=== PATIENT | male | born 1985 | race Caucasian/White ===

== ENCOUNTER 2018-05-26 08:00 | Outpatient (CLI) | payer MEDICAID ==
[2018-05-26 19:28] LABS: BASOPHILS # (AUTO) 0.1 10^3/uL (0.0-0.1); BASOPHILS % (AUTO) 0.8 %; EOSINOPHILS # (AUTO) 0.1 10^3/uL (0.0-0.7); EOSINOPHILS % (AUTO) 0.8 %; LYMPHOCYTES # (AUTO) 1.3 10^3/uL (1.5-3.5); LYMPHOCYTES % (AUTO) 15.9 %; MEAN CORPUSCULAR HEMOGLOBIN 28.2 pg (27.0-31.0); MEAN CORPUSCULAR HGB CONC 33.1 g/dL (32.0-36.0); MEAN CORPUSCULAR VOLUME 85.4 fL (80.0-94.0); MEAN PLATELET VOLUME 13.1 fL (7.4-11.4); MONOCYTES # (AUTO) 0.6 10^3/uL (0.0-1.0); MONOCYTES % (AUTO) 7.4 %; NEUTROPHILS # (AUTO) 6.1 10^3/uL (1.5-6.6); NEUTROPHILS % (AUTO) 75.1 %; PLT - PLATELET COUNT 275 10^3/uL (130-450); RED BLOOD COUNT 5.68 10^6/uL (4.70-6.10); RED CELL DISTRIBUTION WIDTH 13.3 % (12.0-15.0); WHITE BLOOD COUNT 8.1 x10^3/uL (4.8-10.8)
[2018-05-26 19:48] LABS: ALBUMIN 4.2 g/dL (3.2-5.5); ALBUMIN/GLOBULIN RATIO 1.2 (1.0-2.2); BILIRUBIN,TOTAL 0.8 mg/dL (0.2-1.0); CALCIUM 9.2 mg/dL (8.5-10.3); TOTAL PROTEIN 7.7 g/dL (6.7-8.2)
== END 2018-05-26 23:59 | disposition home or self-care (01) ==
LOC: LAB.N 08:00
DX: R22.1 Localized swelling, mass and lump, neck (principal)
CPT/HCPCS: 36415; 80053; 85025

== ENCOUNTER 2018-06-16 08:00 | Outpatient (CLI) | payer MEDICAID ==
[2018-06-16 19:09] LABS: BILIRUBIN,URINE NEGATIVE (NEGATIVE); GLUCOSE, URINE (UA) NEGATIVE (NEGATIVE); KETONES,URINE (UA) NEGATIVE (NEGATIVE); LEUKOCYTE ESTERASE, URINE NEGATIVE (NEGATIVE); NITRITE,URINE NEGATIVE (NEGATIVE); OCCULT BLOOD,URINE NEGATIVE (NEGATIVE); PH,URINE 5.5 PH (5.0-7.5); PROTEIN,URINE NEGATIVE (NEGATIVE); UROBILINOGEN,URINE 0.2 (NORMAL) E.U./dL (NORMAL)
[2018-06-16 19:17] LABS: CLARITY,URINE CLEAR (CLEAR); RBC,URINE None Seen /HPF (0-5); SQUAMOUS EPITHELIAL CELL,UR NONE SEEN (<= Few)
[2018-06-16 19:18] LABS: BACTERIA,URINE None Seen /HPF (None Seen); MUCUS,URINE Few Strands
[2018-06-19 14:46] LABS: ANA SCREEN NEGATIVE (NEGATIVE)
== END 2018-06-16 23:59 | disposition home or self-care (01) ==
LOC: LAB.N 08:00
DX: D71 Functional disorders of polymorphonuclear neutrophils (principal)
CPT/HCPCS: 36415; 81001; 82164; 85651; 86021; 86038; 86140

== ENCOUNTER 2018-06-16 12:41 | Outpatient (CLI) | payer MEDICAID ==
--- NOTE | 2018-06-16 13:46 | XRAY Report ---
Reason: HEMOPTYSIS Procedure Date: 06/16/2018 Accession Number: [id number] / [id number] Procedure: XRN - Chest 2 View X-Ray CPT Code: 90941 FULL RESULT: EXAM: CHEST RADIOGRAPHY EXAM DATE: 06/16/2018 01:28 PM. CLINICAL HISTORY: HEMOPTYSIS. COMPARISON: None. TECHNIQUE: 2 views. FINDINGS: Lungs/Pleura: No focal lung consolidation. No pleural effusion. No pneumothorax. Mediastinum: Cardiac silhouette size appears unremarkable. Other: Osseous structures and upper abdomen appear unremarkable. IMPRESSION: No focal lung consolidation or pleural effusions. RADIA
== END 2018-06-16 12:42 | disposition home or self-care (01) ==
LOC: DI.N 12:41
DX: R04.2 Hemoptysis (principal); D71 Functional disorders of polymorphonuclear neutrophils
CPT/HCPCS: 36415; 71046; 81001; 82164; 85651; 86021; 86038; 86140

== ENCOUNTER 2018-06-30 11:03 | Outpatient (CLI) | payer MEDICAID ==
--- NOTE | 2018-06-30 13:49 | XRAY Report ---
Reason: CONTUSION OF UNSPECIFIED FRNT WALL OF THORAX Procedure Date: 06/30/2018 Accession Number: [id number] / [id number] Procedure: XR - Ribs w/PA Chest LT CPT Code: FULL RESULT: EXAM: LEFT RIB RADIOGRAPHY EXAM DATE: 06/30/2018 11:31 AM. CLINICAL HISTORY: Contusion of unspecified front wall of thorax. COMPARISON: CHEST 2 VIEW 06/16/2018 1:31 PM. TECHNIQUE: 1 view of the chest and 2 views of the ribs. FINDINGS: Bones: Normal. No fracture or bone lesion. Lungs: No focal opacities. No pneumothorax. No pleural effusions. Mediastinum: Heart and mediastinal contours are unremarkable. Other: None. IMPRESSION: Normal chest and rib radiography. RADIA
== END 2018-06-30 11:04 | disposition home or self-care (01) ==
LOC: DI 11:03
PROVIDERS: ATTEND Family Medicine
DX: S20.219A Contusion of unspecified front wall of thorax, initial encounter (principal)

== ENCOUNTER 2018-07-18 11:16 | Outpatient (CLI) | payer MEDICAID | END 2018-07-18 11:17 | disposition home or self-care (01) | LOC: LAB 11:16 | PROVIDERS: ATTEND Internal Medicine Gastroenterology | DX: R22.1 Localized swelling, mass and lump, neck (principal) | CPT/HCPCS: 36415; 81599; 86611 ==

== ENCOUNTER 2023-07-19 14:24 | Emergency (ER) | payer MEDICAID ==
[2023-07-19 14:51] VITALS: O2SAT 97
[2023-07-19 15:11] LABS: BASOPHILS % (AUTO) 0.6 %; EOSINOPHILS # (AUTO) 0.1 10^3/uL (0.0-0.7); EOSINOPHILS % (AUTO) 2.2 %; HCT - HEMATOCRIT 52.4 % (42.0-52.0); HGB - HEMOGLOBIN 18.2 g/dL (14.0-18.0); LYMPHOCYTES % (AUTO) 30.9 %; MEAN CORPUSCULAR HEMOGLOBIN 28.9 pg (27.0-31.0); MEAN CORPUSCULAR HGB CONC 34.7 g/dL (32.0-36.0); MEAN CORPUSCULAR VOLUME 83.2 fL (80.0-94.0); MEAN PLATELET VOLUME 11.7 fL (7.4-11.4); MONOCYTES # (AUTO) 0.5 10^3/uL (0.0-1.0); MONOCYTES % (AUTO) 8.4 %; NEUTROPHILS # (AUTO) 3.6 10^3/uL (1.5-6.6); NEUTROPHILS % (AUTO) 57.6 %; PLT - PLATELET COUNT 225 10^3/uL (130-450); RED CELL DISTRIBUTION WIDTH 12.6 % (12.0-15.0); WHITE BLOOD COUNT 6.3 x10^3/uL (4.8-10.8)
[2023-07-19 15:28] LABS: TROPONIN I HIGH SENSITIVITY 4.8 ng/L (2.3-19.7)
[2023-07-19 15:30] LABS: ALBUMIN 4.6 g/dL (3.2-5.5); ALBUMIN/GLOBULIN RATIO 1.7 (1.0-2.2); BILIRUBIN,TOTAL 0.5 mg/dL (0.2-1.0); CALCIUM 10.1 mg/dL (8.5-10.3); POTASSIUM 3.9 mmol/L (3.5-4.5); TOTAL PROTEIN 7.3 g/dL (6.4-8.9)
--- NOTE | 2023-07-19 15:53 | XRAY Report ---
PROCEDURE: Chest 1V INDICATIONS: Chest pain TECHNIQUE: One view of the chest was acquired. COMPARISON: Chest x-ray 06/16/2018 FINDINGS: Surgical changes and devices: None. Lungs and pleura: No pleural effusions or pneumothorax. Lungs are clear. Mediastinum: Mediastinal contours appear normal. Heart size is normal. Bones and chest wall: No suspicious bony lesions. Overlying soft tissues appear unremarkable. IMPRESSION: No acute cardiopulmonary process. Reviewed by: Rosa Candelaria MD on 07/19/2023 3:52 PM PDT Approved by: Rosa Candelaria MD on 07/19/2023 3:52 PM PDT Station ID: [id number]
--- NOTE | 2023-07-19 19:53 | ED Physician Documentation ---
PD HPI CHEST PAIN - Stated complaint Stated Complaint: UNWELL - Chief complaint Chief Complaint: Cardiac - Additional information Additional information: 38-year-old male with cognitive impairment presents emergency department for generalized malaise and unwell feeling. Patient said that he recently had a checkup appoint with his primary care provider a couple weeks ago and had a normal physical exam he told his primary care provider that he was having increased work of breathing with exercise. Patient says that he is a participant of [employer] and he tries to go on a small jog or walk every day to help for [employer] training and has been noticing that as he has been running he has been having increased pounding heart rate and heart palpitations. He does not take any medications he also says that he has been having increased headache just today and he is concerned about possible fevers or chills but he is not sure if this had any fevers or chills at home because he has not taken his temperature. No nausea vomiting diarrhea he reports that he has been having episodes of chest pain abdominal pain but he denies any chest pain or abdominal pain today or since he has been here in the emergency department. PD PAST MEDICAL HISTORY - Past Medical History Psych: Other - Past Surgical History Past Surgical History: No - Present Medications Home Medications: Ambulatory Orders Medication Instructions Recorded Confirmed No Known Home Medications 07/19/23 07/19/23 - Allergies Allergies/Adverse Reactions: Allergies Allergy/AdvReac Type Severity Reaction Status Date / Time No Known Drug Allergies Allergy Verified 07/19/23 14:44 - Social History Does the pt smoke?: No Smoking Status: Never smoker - Immunizations Immunizations are current?: Yes PD ED PE NORMAL - Vitals Vital signs reviewed: Yes - General General: Alert and oriented X 3, No acute distress, Well developed/nourished - HEENT HEENT: Atraumatic, PERRL - Neck Neck: Supple, no meningeal sign - Cardiac Cardiac: RRR, No murmur, No gallop, Strong equal pulses - Respiratory Respiratory: No respiratory distress, Clear bilaterally - Abdomen Abdomen: Normal bowel sounds, Soft, Non tender, No organomegaly - Back Back: No CVA TTP - Derm Derm: Normal color, Warm and dry, No rash - Extremities Extremities: No edema, No calf tenderness / cord Results - Vitals Vitals: Vital Signs - 24 hr 07/19/23 07/19/23 14:28 20:01 Temperature 37.1 C Heart Rate 84 61 Respiratory 16 14 Rate Blood Pressure 154/97 H 135/68 H O2 Saturation 97 97 Oxygen O2 Source Room air - EKG (time done) 1437 EKG releavant findings:: EKG personally interpreted by author of this note. Relevant findings are: Rate: Rate (enter#) (67) Rhythm: NSR [place]: LAD Intervals: Normal NV QRS: Normal Ischemia: Normal ST segments Compare to prior EKG: Old EKG unavailable Computer interpretation: Disagree with computer (Computer read as possible borderline ST elevation in the lateral leads, not seeing any obvious ST elevation in any leads.) - Labs Labs: Laboratory Tests 07/19/23 07/19/23 07/19/23 14:40 14:40 15:02 WBC 6.3 RBC 6.30 H Hgb 18.2 H Hct 52.4 H MCV 83.2 MCH 28.9 MCHC 34.7 RDW 12.6 Plt Count 225 MPV 11.7 H Neut # (Auto) 3.6 Lymph # (Auto) 2.0 Victoria # (Auto) 0.5 Eos # (Auto) 0.1 Baso # (Auto) 0.0 Absolute Nucleated RBC 0.00 Nucleated RBC % 0.0 Sodium Potassium Chloride Carbon Dioxide Anion Gap BUN Creatinine Estimated GFR (MDRD) Glucose Calcium Total Bilirubin AST ALT Alkaline Phosphatase Troponin I High Sens Total Protein Albumin Globulin Albumin/Globulin Ratio Lipase Urine Color YELLOW Urine Clarity CLEAR Urine pH 5.5 Ur Specific Revere 1.020 Urine Protein NEGATIVE Urine Glucose (UA) NEGATIVE Urine Ketones NEGATIVE Urine Occult Blood NEGATIVE Urine Nitrite NEGATIVE Urine Bilirubin NEGATIVE Urine Urobilinogen 0.2 (NORMAL) Ur Leukocyte Esterase NEGATIVE Ur Microscopic Review NOT INDICATED Urine Culture Comments NOT INDICATED Nasal Adenovirus (PCR) NOT DETECTED Nasal B. parapertussis DNA (PCR) NOT DETECTED Nasal Coronavir 229E PCR NOT DETECTED Nasal Coronavir HKU1 PCR NOT DETECTED Nasal Coronavir NL63 PCR NOT DETECTED Nasal Coronavir OC43 PCR NOT DETECTED Nasal Enterovir/Rhinovir PCR NOT DETECTED Nasal Influenza B PCR NOT DETECTED Nasal Influenza A PCR NOT DETECTED Nasal Parainfluen 1 PCR NOT DETECTED Nasal Parainfluen 2 PCR NOT DETECTED Nasal Parainfluen 3 PCR NOT DETECTED Nasal Parainfluen 4 PCR NOT DETECTED Nasal RSV (PCR) NOT DETECTED Nasal B.pertussis DNA PCR NOT DETECTED Nasal C.pneumoniae (PCR) NOT DETECTED Truman Human Metapneumo PCR NOT DETECTED Nasal M.pneumoniae (PCR) NOT DETECTED Nasal SARS-CoV-2 (PCR) NOT DETECTED 07/19/23 15:02 WBC RBC Hgb Hct MCV MCH MCHC RDW Plt Count MPV Neut # (Auto) Lymph # (Auto) Victoria # (Auto) Eos # (Auto) Baso # (Auto) Absolute Nucleated RBC Nucleated RBC % Sodium 137 Potassium 3.9 Chloride 104 Carbon Dioxide 27 Anion Gap 6.0 BUN 11 Creatinine 1.0 Estimated GFR (MDRD) 84 L Glucose 123 H Calcium 10.1 Total Bilirubin 0.5 AST 25 ALT 45 Alkaline Phosphatase 77 Troponin I High Sens 4.8 Total Protein 7.3 Albumin 4.6 Globulin 2.7 Albumin/Globulin Ratio 1.7 Lipase 40 Urine Color Urine Clarity Urine pH Ur Specific Revere Urine Protein Urine Glucose (UA) Urine Ketones Urine Occult Blood Urine Nitrite Urine Bilirubin Urine Urobilinogen Ur Leukocyte Esterase Ur Microscopic Review Urine Culture Comments Nasal Adenovirus (PCR) Nasal B. parapertussis DNA (PCR) Nasal Coronavir 229E PCR Nasal Coronavir HKU1 PCR Nasal Coronavir NL63 PCR Nasal Coronavir OC43 PCR Nasal Enterovir/Rhinovir PCR Nasal Influenza B PCR Nasal Influenza A PCR Nasal Parainfluen 1 PCR Nasal Parainfluen 2 PCR Nasal Parainfluen 3 PCR Nasal Parainfluen 4 PCR Nasal RSV (PCR) Nasal B.pertussis DNA PCR Nasal C.pneumoniae (PCR) Truman Human Metapneumo PCR Nasal M.pneumoniae (PCR) Nasal SARS-CoV-2 (PCR) - Rads (name of study) Chest x-ray Relevant Findings:: Final report received, EMP independent interpretation of test, Other (No cardiopulmonary abnormalities) PD Medical Decision Making - ED course ED course: 38-year-old male presents emergency department for vague generalized malaise. Differentials include but are not limited to upper respiratory infection, NSTEMI, pneumonia Respiratory swab was complete for the patient everything came back negative. Labs are also complete CBC does not show any anemia hemoglobin is down to 18.2, hematocrit 52.4. No electrolyte abnormalities which could be contributing to patient's generalized malaise feeling. EKG was also complete for further evaluation of possible cardiac abnormalities and was also found to be unremarkable. Chest x-ray was also complete without any cardiopulmonary abnormalities. Urinalysis also inconclusive no leukocytes no nitrates. Patient was given Tylenol in the emergency department for his headache which did help alleviate his headache symptoms at this point in time given how vague patient's symptoms are I am not entirely sure what is causing his generalized malaise feeling but I do believe that he is safe for discharge without any further emergent workup indicated at this time. Patient said that he knows how to follow-up with his primary care provider and he was told to pursue further workup with his primary care provider for additional specialty labs and to try to keep a log of when he is feeling the most unwell and if it is getting any better or worse over the next few days. He said for discharge all questions answered. Departure - Departure Disposition: Home, Self Care Clinical Impression: Malaise Headache Qualifiers: Headache type: unspecified Headache chronicity pattern: acute headache Intractability: not intractable Qualified Code(s): R51.9 - Headache, unspecified Condition: Good Instructions: ED Headache Tension Comments: Again thank you for your patience today. We have completed labs and I am not seeing any significant abnormalities or findings that would warrant further emergent workup. We have also completed a chest x-ray which was also normal. I would strongly recommend following up with your primary care provider for further evaluation. We also completed respiratory swab we will call you if this comes back positive for anything. If you do not hear from us this means that you do not have any upper respiratory infections at this time. Please help with your primary care provider for further evaluation of this rest as needed make sure that you are drinking plenty of fluids. Please come back to the emergency department for having any chest pain, worsening shortness of breath, or any other concerning symptoms. Forms: PCP List Discharge Date/Time: 07/19/23 20:05
[2023-07-19] MEDS: ACETAMINOPHEN 325 MG TABLET PO STA (19:56)
[2023-07-19 20:04] VITALS: BP 135/68
[2023-07-19 20:04] LABS: BILIRUBIN,URINE NEGATIVE (NEGATIVE); GLUCOSE, URINE (UA) NEGATIVE (NEGATIVE); KETONES,URINE (UA) NEGATIVE (NEGATIVE); LEUKOCYTE ESTERASE, URINE NEGATIVE (NEGATIVE); NITRITE,URINE NEGATIVE (NEGATIVE); OCCULT BLOOD,URINE NEGATIVE (NEGATIVE); PH,URINE 5.5 PH (5.0-7.5); PROTEIN,URINE NEGATIVE (NEGATIVE); UROBILINOGEN,URINE 0.2 (NORMAL) E.U./dL (NORMAL)
[2023-07-19 20:05] LABS: CLARITY,URINE CLEAR (CLEAR)
--- NOTE | 2023-07-19 20:35 | XRAY Report ---
PROCEDURE: Chest 1V INDICATIONS: SOA TECHNIQUE: One view of the chest was acquired. COMPARISON: None. FINDINGS: Surgical changes and devices: None. Lungs and pleura: No pleural effusions or pneumothorax. Lungs are clear. Mediastinum: Mediastinal contours appear normal. Heart size is normal. Bones and chest wall: No suspicious bony lesions. Overlying soft tissues appear unremarkable. IMPRESSION: No acute cardiopulmonary process. Reviewed by: Rashid Vallejo MD on 07/19/2023 8:33 PM PDT Approved by: Rashid Vallejo MD on 07/19/2023 8:33 PM PDT Station ID: [id number]
[2023-07-19 21:25] LABS: B. PARAPERTUSSIS- RESP PCR PAN NOT DETECTED; B. PERTUSSIS- RESP PCR PANEL NOT DETECTED; C. PNEUMONIAE- RESP PCR PANEL NOT DETECTED; CORONAVIRUS 229E-RESP PCR NOT DETECTED; CORONAVIRUS HKU1-RESP PCR NOT DETECTED; CORONAVIRUS NL63-RESP PCR NOT DETECTED; CORONAVIRUS OC43-RESP PCR NOT DETECTED; HUMAN METAPNEUMOVIRUS NOT DETECTED; INFLUENZA A- RESP PCR PANEL NOT DETECTED; INFLUENZA B - RESP PCR PANEL NOT DETECTED; M. PNEUMONIAE- RESP PCR PANEL NOT DETECTED; PARAINFLUENZA VIRUS 1 NOT DETECTED; PARAINFLUENZA VIRUS 2 NOT DETECTED; PARAINFLUENZA VIRUS 3 NOT DETECTED; PARAINFLUENZA VIRUS 4 NOT DETECTED; RHINOVIRUS/ENTEROVIRUS NOT DETECTED; RSV- RESP PCR PANEL NOT DETECTED; SARS-CoV-2 -RESP PCR PANEL NOT DETECTED
== END 2023-07-19 20:05 | disposition home or self-care (01) ==
LOC: ED 14:24
DX: R53.81 Other malaise (principal); R51.9 Headache, unspecified
CPT/HCPCS: 36415; 71045; 80053; 81003; 83690; 84484; 85025; 87633; 93005; 99284; A9270; 81001; 87086

== ENCOUNTER 2023-08-31 12:54 | Outpatient (CLI) | payer MEDICAID ==
[2023-08-31 13:06] LABS: BASOPHILS # (AUTO) 0.1 10^3/uL (0.0-0.1); BASOPHILS % (AUTO) 0.9 %; EOSINOPHILS # (AUTO) 0.2 10^3/uL (0.0-0.7); EOSINOPHILS % (AUTO) 2.1 %; HCT - HEMATOCRIT 51.3 % (42.0-52.0); HGB - HEMOGLOBIN 17.9 g/dL (14.0-18.0); LYMPHOCYTES # (AUTO) 2.3 10^3/uL (1.5-3.5); LYMPHOCYTES % (AUTO) 31.1 %; MEAN CORPUSCULAR HEMOGLOBIN 28.9 pg (27.0-31.0); MEAN CORPUSCULAR HGB CONC 34.9 g/dL (32.0-36.0); MEAN CORPUSCULAR VOLUME 82.9 fL (80.0-94.0); MEAN PLATELET VOLUME 11.7 fL (7.4-11.4); MONOCYTES # (AUTO) 0.6 10^3/uL (0.0-1.0); MONOCYTES % (AUTO) 8.5 %; NEUTROPHILS # (AUTO) 4.3 10^3/uL (1.5-6.6); NEUTROPHILS % (AUTO) 57.1 %; PLT - PLATELET COUNT 244 10^3/uL (130-450); RED BLOOD COUNT 6.19 10^6/uL (4.70-6.10); RED CELL DISTRIBUTION WIDTH 12.8 % (12.0-15.0); WHITE BLOOD COUNT 7.5 x10^3/uL (4.8-10.8)
[2023-08-31 13:22] LABS: ALBUMIN 4.8 g/dL (3.2-5.5); ALBUMIN/GLOBULIN RATIO 1.8 (1.0-2.2); ALKALINE PHOSPHATASE 74 IU/L (42-121); ALT ALANINE AMINOTRANSFERASE 47 IU/L (10-60); AST ASPARTATE AMINOTRANSFERASE 24 IU/L (10-42); BILIRUBIN,TOTAL 0.8 mg/dL (0.2-1.0); BUN - BLOOD UREA NITROGEN 19 mg/dL (6-20); CALCIUM 9.9 mg/dL (8.5-10.3); CARBON DIOXIDE - CO2 26 mmol/L (21-32); CHLORIDE 105 mmol/L (101-111); CHOL/HDL RATIO 6.3 (<5.0); CHOLESTEROL 194 mg/dL; GFR - MDRD 84 (>89); GLUCOSE 97 mg/dL (74-104); HDL CHOLESTEROL 31 mg/dL; LDL CHOLESTEROL,CALCULATED 105 mg/dL; LDL/HDL RATIO 3.4 (<3.6); POTASSIUM 4.3 mmol/L (3.5-4.5); SODIUM 135 mmol/L (135-145); TOTAL PROTEIN 7.5 g/dL (6.4-8.9); TRIGLYCERIDES 289 mg/dL (48-352); VLDL CHOLESTEROL 58 mg/dL
[2023-08-31 13:37] LABS: THYROID STIMULATING HORMONE 1.68 uIU/mL (0.34-5.60)
== END 2023-08-31 12:55 | disposition home or self-care (01) ==
LOC: LAB 12:54
PROVIDERS: ATTEND Nurse Practitioner Family
DX: I10 Essential (primary) hypertension (principal); R07.89 Other chest pain; R10.84 Generalized abdominal pain
CPT/HCPCS: 36415; 80053; 80061; 83721; 84443; 85025